=== PATIENT | female | born 1985 | race Caucasian/White ===

== ENCOUNTER 2021-09-13 16:32 | Emergency (ER) | payer SELFPAY ==
--- NOTE | 2021-09-13 16:55 | NUR ---
Patient triaged and placed in waiting room. VSS and patient appears in no acute distress at this time. Accompanied by family , awaiting available bed, and MD notified of need for MSE.pt placed on C-collar.
== END 2021-09-13 19:26 | disposition left against medical advice (07) ==
LOC: SED 16:32
DX: R52 Pain, unspecified (principal); Z53.21 Procedure and treatment not carried out due to patient leaving prior to being seen by health care provider

== ENCOUNTER 2021-12-03 18:33 | Emergency (ER) | payer OTHER ==
[~2021-12-03] VITALS: Ht 157.5 cm; Wt 93.0 kg
[2021-12-03 18:38] VITALS: BP_SYST 130
--- NOTE | 2021-12-03 19:30 | NUR ---
Pt placed in hallway bed.
--- NOTE | 2021-12-03 19:34 | NUR ---
Dr. Adair present with patient at this time.
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
[2021-12-03] MEDS ORDERED: SOM350 PO (20:37)
[2021-12-03] MEDS ORDERED: IBUP-1969 PO (20:37)
[2021-12-03 20:45] VITALS: BP_SYST 128
[2021-12-03] MEDS ORDERED: IBUPROFEN 800 MG TABLET PO ONE (20:45)
== END 2021-12-03 20:50 | disposition home or self-care (01) ==
LOC: SED 18:33
DX: S16.1XXA Strain of muscle, fascia and tendon at neck level, initial encounter (principal); Z88.0 Allergy status to penicillin; Z79.899 Other long term (current) drug therapy; V49.49XA Driver injured in collision with other motor vehicles in traffic accident, initial encounter; Y93.89 Activity, other specified; Y92.89 Other specified places as the place of occurrence of the external cause; Y99.8 Other external cause status
CPT/HCPCS: 71045; 72040-TC; 99284